=== PATIENT | male | born 1970 | race Caucasian/White ===

== ENCOUNTER 2017-03-29 09:25 | Day surgery (SDC) | payer BC ==
[~2017-03-29] VITALS: Ht 182.9 cm; Wt 84.0 kg
[~2017-03-29 09:25] MED LIST: IBUP200T48 PO; LORA10CA PO
[2017-03-29] MEDS ORDERED: LACTATED RINGERS 1,000 ML IV SCH (09:47)
[2017-03-29] MEDS ORDERED: LIDOCAINE/PF 1%-EPI 1:200K, 30ML ONE (10:06)
[2017-03-29] MEDS ORDERED: BUPIVACAINE/PF 0.5% ONE (10:06)
[2017-03-29] MEDS ORDERED: BUPIVACAINE/PF-EPI 0.5% 1:200K ONE (10:07)
[2017-03-29 10:19] VITALS: BP 136/78
[2017-03-29] MEDS ORDERED: MIDAZOLAM 1 MG/ML, 2ML ONE (10:30)
[2017-03-29] MEDS ORDERED: FENTANYL PF 250 MCG/5ML ONE (10:30)
[2017-03-29] MEDS ORDERED: KETOROLAC 30 MG/1 ML ONE (11:18)
[2017-03-29] MEDS ORDERED: GLYCOPYRROLATE 0.2MG/1ML ONE (11:18)
[2017-03-29] MEDS ORDERED: CEFAZOLIN 1,000 MG ONE (11:18)
[2017-03-29] MEDS ORDERED: PROPOFOL 10 MG/ML, 20ML ONE (11:18)
[2017-03-29] MEDS ORDERED: DEXAMETHASONE 4 MG/ML, 1ML ONE (11:18)
[2017-03-29] MEDS ORDERED: METOCLOPRAMIDE 5 MG/ML, 2ML ONE (11:18)
[2017-03-29] MEDS ORDERED: NEOSTIGMINE 1 MG/ML, 10ML ONE (11:18)
[2017-03-29] MEDS ORDERED: ROCURONIUM 10 MG/ML ONE (11:18)
[2017-03-29] MEDS ORDERED: ONDANSETRON 2MG/ML, 2ML ONE (11:18)
[2017-03-29] MEDS ORDERED: LORATADINE 10 MG TABLET PO PRN (11:30)
[2017-03-29] MEDS ORDERED: ACETAMINOPHEN 325 MG TABLET PO PRN (12:00)
[2017-03-29] MEDS ORDERED: ALBUTEROL SULFATE 2.5 MG/3 ML NPPB PRN (12:00)
[2017-03-29] MEDS ORDERED: MEPERIDINE/PF 25MG/0.5ML IVPush PRN (12:00)
[2017-03-29] MEDS ORDERED: ONDANSETRON 2MG/ML, 2ML IVPush PRN (12:00)
[2017-03-29] MEDS ORDERED: FENTANYL PF 100 MCG/2ML IV PRN (12:00)
[2017-03-29] MEDS ORDERED: hydrALAzine 20 MG/ML, 1ML IV PRN (12:00)
[2017-03-29] MEDS ORDERED: HYDROmorphone 1 MG/ML, 1ML IV PRN (12:00)
[2017-03-29] MEDS ORDERED: OXYcodone 5 MG/5 ML ORAL.SOL UDC PO PRN (12:00)
[2017-03-29] MEDS ORDERED: LABETALOL 5MG/ML, 20ML IV PRN (12:00)
[2017-03-29] MEDS ORDERED: EPHEDRINE 50 MG/ML, 1ML IVPush PRN (12:00)
[2017-03-29] MEDS ORDERED: METOPROLOL 1 MG/ML, 5ML IV PRN (12:00)
[2017-03-29] MEDS ORDERED: EPINEPHRINE 1 MG/ML, 1ML ONE (12:52)
[2017-03-29] MEDS ORDERED: OXYcodone 5 MG/5 ML ORAL.SOL UDC ONE (14:21)
[2017-03-29] MEDS ORDERED: IBUPROFEN 200 MG TABLET PO SCH (16:00)
== END 2017-03-29 15:30 | disposition home or self-care (01) ==
LOC: OUT 09:25
PROVIDERS: ATTEND Orthopaedic Surgery
DX: S46.011A Strain of muscle(s) and tendon(s) of the rotator cuff of right shoulder, initial encounter (principal); M75.41 Impingement syndrome of right shoulder; M19.011 Primary osteoarthritis, right shoulder; M65.811 Other synovitis and tenosynovitis, right shoulder; M25.311 Other instability, right shoulder; S43.431A Superior glenoid labrum lesion of right shoulder, initial encounter; X58.XXXA Exposure to other specified factors, initial encounter; Y93.9 Activity, unspecified; Y92.9 Unspecified place or not applicable; Y99.9 Unspecified external cause status; M94.211 Chondromalacia, right shoulder; Z79.1 Long term (current) use of non-steroidal anti-inflammatories (NSAID)
CPT/HCPCS: 29823; 29824; 29826; 29827; 29828; J0171; J0690; J1100; J1885; J2250; J2405; J2704; J2710; J2765; J3010; J3490; J7120